=== PATIENT | female | born 1990 | race African-American/Black ===

== ENCOUNTER 2016-08-25 09:28 | Outpatient (CLI) | payer MEDICAID ==
[~2016-08-25 09:28] MED LIST: DEPO150I IM; FIORIC PO; PROC1TAB8 PO
== END 2016-08-25 10:31 | disposition home or self-care (01) ==
LOC: UNDOADMIN 09:28 → HOBG 09:28 → H2EB 09:28 → UNDODISIN 10:31 → HOBG 10:31 → EDSTATUS 12:00
PROVIDERS: ATTEND Obstetrics & Gynecology
DX: O47.1 False labor at or after 37 completed weeks of gestation (principal); Z3A.37 37 weeks gestation of pregnancy

== ENCOUNTER 2016-08-31 07:29 | Inpatient (IN) | payer MEDICAID ==
[~2016-08-31] VITALS: Ht 167.6 cm; Wt 76.0 kg
[2016-08-31] VITALS (23 sets, daily range): BP systolic 113–127; BP diastolic 66–77; PULSE 56–84; RESP 16–20; TEMP 96.6–98; O2SAT 100
[2016-08-31] MEDS ORDERED: PREN29TA PO (08:05)
[2016-08-31 08:39] LABS: AUTOMATED NEUTROPHIL # 7.5 TH/MM3 (1.8-7.7); BASOPHIL % 0.1 % (0.0-2.0); EOSINOPHIL % 0.4 % (0.0-4.0); HEMATOCRIT 36.8 % (35.0-46.0); HEMO FLAGS DIFF FINAL; LYMPH % 22.8 % (9.0-44.0); LYMPHOCYTE # 2.4 TH/MM3 (1.0-4.8); MEAN CELL VOLUME 95.2 FL (80.0-100.0); MEAN CORPUSCULAR HEMOGLOBIN 32.3 PG (27.0-34.0); NEUT % 69.7 % (16.0-70.0); PLATELET COUNT 101 TH/MM3 (150-450); RED BLOOD COUNT 3.87 MIL/MM3 (4.00-5.30); RED CELL DISTRIBUTION WIDTH 15.1 % (11.6-17.2); WHITE BLOOD COUNT 10.7 TH/MM3 (4.0-11.0)
[2016-08-31 08:40] LABS: BLOOD, URINE NEG (NEG); COMMENT (UR) CULT NOT INDICATED; CULTURE IF INDICATED CULT NOT INDICATED; GLUCOSE,URINE NEG (NEG); KETONE, URINE 10 mg/dL (NEG); MUCUS URINE FEW /lpf (OCC); NITRITE,URINE NEG (NEG); PH, URINE 6.5 (5.0-8.5); SQUAMOUS EPITHELIAL CELL URINE 4 /hpf (0-5); URINE COLOR YELLOW (YELLW/STRAW)
[2016-08-31] MEDS ORDERED: LACTATED RINGER'S 1000 ML IV ONE ×2 (09:00→14:45)
[2016-08-31] MEDS ORDERED: CITRIC ACID-SODIUM CITRATE LIQ 30 ML UDC PO SCH ×2 (09:00→14:45)
[2016-08-31] MEDS ORDERED: MEPERIDINE HCL 50 MG/ML VIAL IM ONE ×3 (09:00→19:45)
[2016-08-31] MEDS ORDERED: ceFAZolin 1,000 MG/NS 100 ML IV SCH ×4 (09:00→14:45)
[2016-08-31] MEDS ORDERED: LACTATED RINGER'S 1000 ML IV SCH ×2 (09:00→14:45)
[2016-08-31] MEDS ORDERED: KETOROLAC TROMETHAMINE 30 MG/ML (IVP) VIAL ONE (10:24)
[2016-08-31] MEDS ORDERED: OXYTOCIN 10 UNIT/ML AMP ONE (10:25)
[2016-08-31] MEDS ORDERED: ONDANSETRON HCL 4 MG/2 ML VIAL ONE (10:25)
--- NOTE | 2016-08-31 10:38 | HHI.HP ---
HPI Chief Complaint Repeat Date Seen: Aug 31, 2016 Travel History International Travel<30 Days: No Contact w/Intl Traveler<30Days: No History of Present Illness HPI Patient is a 26 year old at 39-3/7 weeks gestation who presents today for repeat . She had a small amount of bloody mucous discharge this morning and has been feeling contractions every couple minutes. She denies any gush or leaking of fluid. Positive movement. History Past Medical History Medical History: Denies Significant Hx Obstetric History Obstetric History Elective in 2012 Past Surgical History Narrative Surgical 2012 Family History Family History: Negative Social History Alcohol Use: No Tobacco Use: No Substance Abuse: No Allergies-Medications (Allergen,Severity, Reaction): Coded Allergies: No Known Allergies (Verified , 08/31/16) Home Meds Reported Medications Vit-Iron Carbonyl ( Plus Iron 29-1 mg)1 Tab Tab1 Tab PO DAILY #30 TAB Ref 0 08/31/16 Discontinued Reported Medications Medroxyprogesterone Acetate (Depo-Provera Contraceptive)150 Mg/Ml [id number] Mg IM Q90D 11/12/13 Discontinued Scripts Acetamin/Butalbital/Caffeine (Fioricet Tab)1 Tab1 Tab PO Q6H PRN (HEADACHE) #12 TAB Prov:MELBA BEASLEY M.D. 11/12/13 Prochlorperazine Maleate (Compazine 10 Mg Tab)10 Mg Tab10 Mg PO Q6 PRN (NAUSEA OR VOMITING) #12 TAB Prov:MELBA BEASLEY M.D. 11/12/13 Review of Systems Except as stated in HPI: all other systems reviewed are Neg General / Constitutional: No: Fever, Chills Eyes: No: Visual changes HENT: No: Headaches Cardiovascular: No: Chest Pain or Discomfort Respiratory: No: Short of Breath Gastrointestinal: No: Nausea, Vomiting, Abdominal Pain Genitourinary: Pelvic Pain, Discharge, Vaginal Bleeding, No: Dysuria, Hematuria Musculoskeletal: No: Edema Psychiatric: No: Substance Abuse Physical Exam Vital Signs Date Time Temp Pulse Resp B/P Pulse Ox O2 Delivery O2 Flow Rate FiO2 08/31/16 10:11 17 08/31/16 10:10 75 08/31/16 10:05 73 08/31/16 10:00 78 08/31/16 07:45 18 Narrative GENERAL: Well-nourished, well-developed patient. SKIN: Warm and dry. HEAD: Normocephalic and atraumatic. EYES: No scleral icterus. No injection or drainage. ENT: No nasal drainage noted. Mucous membranes pink. Airway patent. NECK: Supple, trachea midline. No JVD. CARDIOVASCULAR: Regular rate and rhythm without murmurs, gallops, or rubs. RESPIRATORY: Breath sounds equal bilaterally. No accessory muscle use. ABDOMEN/GI: Abdomen soft, non-tender, bowel sounds present, no rebound, no guarding Gravid to 39 weeks size GENITOURINARY: External Genitalia: intact and normal in appearance BUS glands: normal Cervix: midposition Dilatation: 2-3 Effacement: 80 Station: -2 Presentation: vertex Membranes: intact Uterine Contractions: q1-3min FHT's: Category: I Baseline: 130 Reactive: + Variability: moderate Decels: none EXTREMITIES: No cyanosis or edema. BACK: Nontender without obvious deformity. NEUROLOGICAL: Awake and alert. Motor and sensory grossly within normal limits. Normal speech. Data Data Vital Signs Reviewed: Yes Orders Complete Blood Count With Diff (08/31/16 08:28) Type And Screen (08/31/16 08:28) Urinalysis - C+S If Indicated (08/31/16 08:28) Specimen To Be Collected PRN (08/31/16 08:28) Meperidine Inj (Demerol Inj) (08/31/16 09:00) Lactated Ringer's 1000 Ml Inj (Lr 1000 M (08/31/16 09:00) Lactated Ringer's 1000 Ml Inj (Lr 1000 M (08/31/16 09:00) Citric Acid-Sodium Citrate Liq (Bicitra (08/31/16 09:00) Cefazolin Inj (Ancef Inj) (08/31/16 09:00) Admit To Inpatient (08/31/16 ) Vital Signs (Adult) .ON ADMISSION (08/31/16 09:23) Activity Oob Ad Michelle (08/31/16 09:23) Heart (08/31/16 09:23) Urinary Catheter Management PRECIOUS.Q8H (08/31/16 09:23) ^ Preps (08/31/16 09:23) Scd / [place] / Foot Pump PRECIOUS.QSHIFT (08/31/16 09:23) ^ Ultrasound For Locatio (08/31/16 09:23) Diet Npo (08/31/16 Breakfast) Ketorolac Inj (Toradol Inj) (08/31/16 10:24) Ondansetron Inj (Zofran Inj) (08/31/16 10:25) Oxytocin Inj (Pitocin Inj) (08/31/16 10:25) Labs Laboratory Tests Test 08/31/16 07:47 White Blood Count 10.7 Red Blood Count 3.87 Hemoglobin 12.5 Hematocrit 36.8 Mean Corpuscular Volume 95.2 Mean Corpuscular Hemoglobin 32.3 Mean Corpuscular Hemoglobin 34.0 Concent Red Cell Distribution Width 15.1 Platelet Count 101 Mean Platelet Volume 11.9 Neutrophils (%) (Auto) 69.7 Lymphocytes (%) (Auto) 22.8 Monocytes (%) (Auto) 7.0 Eosinophils (%) (Auto) 0.4 Basophils (%) (Auto) 0.1 Neutrophils # (Auto) 7.5 Lymphocytes # (Auto) 2.4 Monocytes # (Auto) 0.7 Eosinophils # (Auto) 0.0 Basophils # (Auto) 0.0 CBC Comment DIFF FINAL Differential Comment Urine Color YELLOW Urine Turbidity CLEAR Urine pH 6.5 Urine Specific [place] 1.019 Urine Protein NEG Urine Glucose (UA) NEG Urine Ketones 10 Urine Occult Blood NEG Urine Nitrite NEG Urine Bilirubin NEG Urine Urobilinogen LESS THAN 2.0 Urine Leukocyte Esterase NEG Urine RBC LESS THAN 1 Urine WBC 1 Urine Squamous Epithelial 4 Cells Urine Mucus FEW Microscopic Urinalysis Comment CULT NOT INDICATED Blood Type O POSITIVE Antibody Screen NEGATIVE Assessment/Plan Assessment and Plan 26 year old at 39-3/7 weeks gestation. 1. IUP- Category I tracing, reassuring. 2. Repeat . 3. GBS negative. Saumya Benitez Dr., MD R2 Aug 31, 2016 10:38
--- NOTE | 2016-08-31 10:45 | HHI.HP ---
HPI Chief Complaint CONTRACTIONS, EARLY LABOR Date Seen: Aug 31, 2016 Travel History International Travel<30 Days: No Contact w/Intl Traveler<30Days: No Known Affected Area: No History of Present Illness HPI 26 YEAR OLD BLACK FEMALE THAT PRESENTED TO LABOR AND DELIVERY WITH CONTRACTIONS. SHE WAS SCHEDULED TODAY FOR A REPEAT AT NOON. HER CERVIX WAS 2-3/80/-2 WITH IRREGULAR MILD CONTRACTIONS, DENIES ROM. TRACING REACTIVE. WE WILL GIVE HER SOME DEMEROL AND MOVE HER SURGERY UP TO 11: 00. 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 Medical History: Denies Significant Hx Obstetric History Obstetric History PREVIOUS C SECTION BLOOD TYPE O+ GBS NEGATIVE OB LABS NEGATIVE Past Surgical History Narrative Surgical C SECTION 2012 Family History Family History: Negative Social History Alcohol Use: No Tobacco Use: No Substance Abuse: No Allergies-Medications (Allergen,Severity, Reaction): Coded Allergies: No Known Allergies (Verified , 08/31/16) Home Meds Reported Medications Vit-Iron Carbonyl ( Plus Iron 29-1 mg)1 Tab Tab1 Tab PO DAILY #30 TAB Ref 0 08/31/16 Discontinued Reported Medications Medroxyprogesterone Acetate (Depo-Provera Contraceptive)150 Mg/Ml [id number] Mg IM Q90D 11/12/13 Discontinued Scripts Acetamin/Butalbital/Caffeine (Fioricet Tab)1 Tab1 Tab PO Q6H PRN (HEADACHE) #12 TAB Prov:MELBA BEASLEY M.D. 11/12/13 Prochlorperazine Maleate (Compazine 10 Mg Tab)10 Mg Tab10 Mg PO Q6 PRN (NAUSEA OR VOMITING) #12 TAB Prov:MELBA BEASLEY M.D. 11/12/13 Physical Exam Vital Signs Date Time Temp Pulse Resp B/P Pulse Ox O2 Delivery O2 Flow Rate FiO2 08/31/16 10:11 17 08/31/16 10:10 75 08/31/16 10:05 73 08/31/16 10:00 78 08/31/16 07:45 18 Narrative GENERAL: Well-nourished, well-developed patient. SKIN: Warm and dry. HEAD: Normocephalic and atraumatic. EYES: No scleral icterus. No injection or drainage. ENT: No nasal drainage noted. Mucous membranes pink. Airway patent. NECK: Supple, trachea midline. No JVD. CARDIOVASCULAR: Regular rate and rhythm without murmurs, gallops, or rubs. RESPIRATORY: Breath sounds equal bilaterally. No accessory muscle use. BREASTS: Bilateral exam showed no masses , no retractions, no nipple discharge. ABDOMEN/GI: Abdomen soft, non-tender, bowel sounds present, no rebound, no guarding GENITOURINARY: External Genitalia: intact and normal in appearance SVE 2-3/8-/-2 INTACT FHT's: REACTIVE MOD CONTRACTIONS Q 4-6 MINUTES EXTREMITIES: No cyanosis or edema. BACK: Nontender without obvious deformity. No CVA tenderness. NEUROLOGICAL: Awake and alert. Motor and sensory grossly within normal limits. Five out of 5 muscle strength in all muscle groups. Normal speech. Data Data Vital Signs Reviewed: Yes Orders Complete Blood Count With Diff (08/31/16 08:28) Type And Screen (08/31/16 08:28) Urinalysis - C+S If Indicated (08/31/16 08:28) Specimen To Be Collected PRN (08/31/16 08:28) Meperidine Inj (Demerol Inj) (08/31/16 09:00) Lactated Ringer's 1000 Ml Inj (Lr 1000 M (08/31/16 09:00) Lactated Ringer's 1000 Ml Inj (Lr 1000 M (08/31/16 09:00) Citric Acid-Sodium Citrate Liq (Bicitra (08/31/16 09:00) Cefazolin Inj (Ancef Inj) (08/31/16 09:00) Admit To Inpatient (08/31/16 ) Vital Signs (Adult) .ON ADMISSION (08/31/16 09:23) Activity Oob Ad Michelle (08/31/16 09:23) Heart (08/31/16 09:23) Urinary Catheter Management PRECIOUS.Q8H (08/31/16 09:23) ^ Preps (08/31/16 09:23) Scd / [place] / Foot Pump PRECIOUS.QSHIFT (08/31/16 09:23) ^ Ultrasound For Locatio (08/31/16 09:23) Diet Npo (08/31/16 Breakfast) Ketorolac Inj (Toradol Inj) (08/31/16 10:24) Ondansetron Inj (Zofran Inj) (08/31/16 10:25) Oxytocin Inj (Pitocin Inj) (08/31/16 10:25) Labs Laboratory Tests Test 08/31/16 07:47 White Blood Count 10.7 Red Blood Count 3.87 Hemoglobin 12.5 Hematocrit 36.8 Mean Corpuscular Volume 95.2 Mean Corpuscular Hemoglobin 32.3 Mean Corpuscular Hemoglobin 34.0 Concent Red Cell Distribution Width 15.1 Platelet Count 101 Mean Platelet Volume 11.9 Neutrophils (%) (Auto) 69.7 Lymphocytes (%) (Auto) 22.8 Monocytes (%) (Auto) 7.0 Eosinophils (%) (Auto) 0.4 Basophils (%) (Auto) 0.1 Neutrophils # (Auto) 7.5 Lymphocytes # (Auto) 2.4 Monocytes # (Auto) 0.7 Eosinophils # (Auto) 0.0 Basophils # (Auto) 0.0 CBC Comment DIFF FINAL Differential Comment Urine Color YELLOW Urine Turbidity CLEAR Urine pH 6.5 Urine Specific [place] 1.019 Urine Protein NEG Urine Glucose (UA) NEG Urine Ketones 10 Urine Occult Blood NEG Urine Nitrite NEG Urine Bilirubin NEG Urine Urobilinogen LESS THAN 2.0 Urine Leukocyte Esterase NEG Urine RBC LESS THAN 1 Urine WBC 1 Urine Squamous Epithelial 4 Cells Urine Mucus FEW Microscopic Urinalysis Comment CULT NOT INDICATED Blood Type O POSITIVE Antibody Screen NEGATIVE Assessment/Plan Problem List: (1) Previous section Assessment and Plan WILL MEDICATE WITH DEMEROL AND DO HER REPEAT C SECTION AT 11:00 Discharge Planning DC 2-[address] MENJIVAR EXAMINED PT Deepti Mari Aug 31, 2016 10:45
[2016-08-31] MEDS ORDERED: OXYTOCIN 30 UNITS-500ML PREMIX 500 ML IV ONE ×2 (12:15)
[2016-08-31] MEDS ORDERED: SODIUM CHLORIDE 0.9% FLUSH 10 ML FLUSH IV FLUSH PRN (12:15)
[2016-08-31] MEDS ORDERED: oxyCODONE/ACETAMINOPHEN 5 MG/325 MG TAB PO PRN (12:15)
[2016-08-31] MEDS ORDERED: MORPHINE SULFATE PF 5 MG/10 ML VIAL ONE (12:31)
[2016-08-31] MEDS ORDERED: ONDANSETRON HCL 4 MG/2 ML VIAL IV PUSH PRN (13:00)
[2016-08-31] MEDS ORDERED: OXYTOCIN 30 UNITS-500ML PREMIX 500 ML ONE (13:20)
[2016-08-31] MEDS ORDERED: EPIDURAL-DO NOT ADMINISTER ANTICOAGULANTS PRN (14:45)
[2016-08-31] MEDS ORDERED: EPIDURAL-NALOXONE HCL 0.4 MG/ML AMP IV PRN (14:45)
[2016-08-31] MEDS ORDERED: EPIDURAL-NO SYSTEMIC NARCOTICS PRN (14:45)
[2016-08-31] MEDS ORDERED: EPIDURAL-DIPHENHYDRAMINE HCL 50 MG/ML VIAL IV PUSH PRN (14:45)
[2016-08-31] MEDS: IBUPROFEN 600 MG TAB PO PRN ×2 (16:12→22:21)
[2016-08-31] MEDS ORDERED: LACTATED RINGER'S 1000 ML INJ 1,000 ML IV SCH (17:15)
[2016-08-31] MEDS ORDERED: ZOLPIDEM TARTRATE 5 MG TAB PO PRN (21:00)
[2016-08-31] MEDS ORDERED: SODIUM CHLORIDE 0.9% FLUSH 10 ML FLUSH IV FLUSH SCH (21:00)
[2016-08-31] MEDS ORDERED: OXYTOCIN 30 UNITS-500ML PREMIX 500 ML IV PRN (22:15)
[2016-08-31] MEDS: oxyCODONE/ACETAMINOPHEN 5 MG/325 MG TAB PO PRN (22:22)
[2016-08-31] MEDS: EPIDURAL-DIPHENHYDRAMINE HCL 50 MG CAP PO PRN (22:22)
[2016-09-01 03:30] VITALS: BP 118/72; PULSE 85; RESP 16; TEMP 98
[2016-09-01 05:56] LABS: AUTOMATED NEUTROPHIL # 7.8 TH/MM3 (1.8-7.7); BASOPHIL % 0.5 % (0.0-2.0); EOSINOPHIL # 0.1 TH/MM3 (0-0.4); EOSINOPHIL % 0.5 % (0.0-4.0); HEMATOCRIT 33.7 % (35.0-46.0); LYMPH % 15.7 % (9.0-44.0); LYMPHOCYTE # 1.7 TH/MM3 (1.0-4.8); MEAN CELL VOLUME 95.1 FL (80.0-100.0); MEAN CORPUSCULAR HEMOGLOBIN 32.2 PG (27.0-34.0); MEAN CORPUSCULAR HGB CONC 33.9 % (32.0-36.0); MONO % 9.6 % (0.0-8.0); NEUT % 73.7 % (16.0-70.0); PLATELET COUNT 84 TH/MM3 (150-450); RED BLOOD COUNT 3.55 MIL/MM3 (4.00-5.30); RED CELL DISTRIBUTION WIDTH 14.5 % (11.6-17.2); WHITE BLOOD COUNT 10.6 TH/MM3 (4.0-11.0)
[2016-09-01 06:00] LABS: HEMO FLAGS AUTO DIFF
[2016-09-01] MEDS: IBUPROFEN 600 MG TAB PO PRN ×3 (06:35→22:16)
[2016-09-01] MEDS: oxyCODONE/ACETAMINOPHEN 5 MG/325 MG TAB PO PRN ×4 (06:35→19:14)
[2016-09-01 08:07] LABS: PLATELET ESTIMATE SMEAR LOW (NORMAL); PLATELET MORPHOLOGY ENLARGED (NORMAL); SCAN/DIFF AUTO DIFF CONFIRMED
[2016-09-01 08:45] VITALS: BP 113/73; PULSE 94; RESP 16; TEMP 97.8
--- NOTE | 2016-09-01 09:02 | HHI.OB ---
Subjective Post Operative Day: 1 Objective Vitals/I&O Vital Signs Date Time Temp Pulse Resp B/P Pulse Ox O2 Delivery O2 Flow Rate FiO2 09/01/16 08:45 97.8 94 16 113/73 08/31/16 23:39 98.0 82 16 08/31/16 23:39 113/76 08/31/16 19:30 97.9 65 18 116/77 08/31/16 18:10 18 08/31/16 17:20 18 08/31/16 16:10 17 08/31/16 15:10 16 08/31/16 14:15 97.2 08/31/16 14:15 65 18 120/66 08/31/16 13:38 97.6 08/31/16 13:37 57 18 127/76 100 08/31/16 13:29 64 20 100 08/31/16 13:29 120/70 08/31/16 13:24 96.7 08/31/16 13:07 56 20 115/70 100 08/31/16 12:53 56 20 113/73 100 08/31/16 12:50 100 08/31/16 12:35 96.6 62 19 114/68 08/31/16 10:38 79 116/70 08/31/16 10:35 84 08/31/16 10:30 82 08/31/16 10:11 17 08/31/16 10:10 75 08/31/16 10:05 73 08/31/16 10:00 78 Result Diagram: 09/01/16 0443 Objective Remarks GENERAL: Well-nourished, well-developed patient. CARDIOVASCULAR: Regular rate and rhythm without murmurs, gallops, or rubs. RESPIRATORY: Breath sounds equal bilaterally. No accessory muscle use. ABDOMEN/GI: Abdomen soft, non-tender, bowel sounds present. Incision: steri strips Clean, dry and intact. Fundus: Firm, non-tender at umbilicus. GENITOURINARY: Light to moderate bleeding. EXTREMITIES: No cyanosis or edema, non-tender, without signs of DVT. Medications and IVs Current Medications Medications (Trade) Dose Ordered Sig/Kael Route Start Time Stop Time Status Last Admin (Lr 1000 ml Inj) 1,000 ml @ 100 mls/hr Q10H IV 08/31/16 17:15 09/01/16 13:14 (NS Flush) 2 ml BID IV FLUSH 08/31/16 21:00 (NS Flush) 2 ml UNSCH PRN IV FLUSH 08/31/16 12:15 (Mylicon Chew) 80 mg QID PRN PO 08/31/16 12:15 (Motrin) 600 mg Q6H PRN PO 08/31/16 12:15 09/01/16 06:35 (Percocet 5-325 Mg) 1 tab Q4H PRN PO 08/31/16 12:15 09/01/16 02:30 (Percocet 5-325 Mg) 2 tab Q4H PRN PO 08/31/16 12:15 09/01/16 06:35 (Loraine-Colace) 2 tab Q12HR PRN PO 08/31/16 21:00 (Ambien) 5 mg HS PRN PO 08/31/16 21:00 (M-M-R Ii Inj) 0.5 ml ONCE ONCE SQ 09/01/16 16:00 09/01/16 16:01 (Boostrix Inj) 0.5 ml ONCE ONCE IM 09/01/16 16:00 09/01/16 16:01 (Zofran Inj) 4 mg Q6H PRN IV PUSH 08/31/16 13:00 (Stuartnatal Plus 3 ) 1 tab DAILY PO 09/01/16 09:00 Miscellaneous Information NO SYSTEMIC NARCOTICS TO BE GIVEN FO... UNSCH PRN .XX 08/31/16 14:45 09/01/16 14:44 (Narcan Inj) 0.4 mg UNSCH PRN IV 08/31/16 14:45 09/01/16 14:44 (Benadryl Inj) 25 mg Q6H PRN IV PUSH 08/31/16 14:45 09/01/16 14:44 (Benadryl) 50 mg Q6H PRN PO 08/31/16 14:45 09/01/16 14:44 08/31/16 22:22 Miscellaneous Information ALL NURSING DEPARTMENTS UNSCH PRN .XX 08/31/16 14:45 09/01/16 14:44 (Lr 1000 ml Inj) 1,000 ml @ 150 mls/hr Q6H40M IV 7/24/17 14:45 Assessment/Plan Problem List: (1) Previous section Plan: routine (2) Thrombocytopenia Plan: will repeat lab in am Assessment and Plan pt doing well platelets 84, will repeat in am pain well managed with oral pain medication pt ambulating in room bonding with Discharge Planning DC in 1-2 days Deepti Mari Sep 01, 2016 09:02
[2016-09-01] MEDS: MULTIVIT/MIN/PREN/FOL AC/IRON PRENATAL TAB PO SCH (09:08)
[2016-09-01] MEDS: EPIDURAL-DIPHENHYDRAMINE HCL 50 MG CAP PO PRN (09:08)
[2016-09-01 12:20] VITALS: BP 121/73; PULSE 88; RESP 18; TEMP 97.8
[2016-09-01] MEDS ORDERED: DIPHTH/TETANUS/ACEL PERTUSSIS (BOOSTER) 0.5 ML VIAL/PFS IM ONE (16:00)
[2016-09-01] MEDS ORDERED: MEASLES, MUMPS, RUBELLA VACCINE 0.5 ML VIAL SQ ONE (16:00)
[2016-09-01 22:00] VITALS: BP 106/68; PULSE 89; RESP 16; TEMP 98.5
[2016-09-01] MEDS: SIMETHICONE 80 MG CHEWABLE TAB PO PRN (22:16)
[2016-09-02] MEDS: oxyCODONE/ACETAMINOPHEN 5 MG/325 MG TAB PO PRN ×4 (01:10→20:57)
[2016-09-02 06:58] LABS: HEMATOCRIT 32.3 % (35.0-46.0); MEAN CELL VOLUME 94.8 FL (80.0-100.0); MEAN CORPUSCULAR HEMOGLOBIN 32.1 PG (27.0-34.0); MEAN CORPUSCULAR HGB CONC 33.9 % (32.0-36.0); PLATELET COUNT 99 TH/MM3 (150-450); RED BLOOD COUNT 3.41 MIL/MM3 (4.00-5.30); WHITE BLOOD COUNT 9.1 TH/MM3 (4.0-11.0)
[2016-09-02 07:04] LABS: REVIEW FLAG FINAL
[2016-09-02 08:00] VITALS: BP 97/60; PULSE 85; RESP 16; TEMP 98
[2016-09-02] MEDS: SIMETHICONE 80 MG CHEWABLE TAB PO PRN (08:21)
[2016-09-02] MEDS: MULTIVIT/MIN/PREN/FOL AC/IRON PRENATAL TAB PO SCH (08:58)
[2016-09-02] MEDS: IBUPROFEN 600 MG TAB PO PRN ×3 (08:58→20:57)
--- NOTE | 2016-09-02 09:13 | HHI.OB ---
Subjective Post Operative Day: 2 Objective Vitals/I&O Vital Signs Date Time Temp Pulse Resp B/P Pulse Ox O2 Delivery O2 Flow Rate FiO2 09/01/16 22:00 89 16 106/68 09/01/16 22:00 98.5 09/01/16 12:20 97.8 88 18 121/73 Result Diagram: 09/02/16 0628 Objective Remarks GENERAL: Well-nourished, well-developed patient. CARDIOVASCULAR: Regular rate and rhythm without murmurs, gallops, or rubs. RESPIRATORY: Breath sounds equal bilaterally. No accessory muscle use. ABDOMEN/GI: Abdomen soft, non-tender, bowel sounds present. Incision: steri strips Clean, dry and intact. Fundus: Firm, non-tender at umbilicus. GENITOURINARY: Light to moderate bleeding. EXTREMITIES: No cyanosis or edema, non-tender, without signs of DVT. Medications and IVs Current Medications Medications (Trade) Dose Ordered Sig/Kael Route Start Time Stop Time Status Last Admin (NS Flush) 2 ml BID IV FLUSH 08/31/16 21:00 (NS Flush) 2 ml UNSCH PRN IV FLUSH 08/31/16 12:15 (Mylicon Chew) 80 mg QID PRN PO 08/31/16 12:15 09/02/16 08:21 (Motrin) 600 mg Q6H PRN PO 08/31/16 12:15 09/01/16 22:16 (Percocet 5-325 Mg) 1 tab Q4H PRN PO 08/31/16 12:15 09/01/16 02:30 (Percocet 5-325 Mg) 2 tab Q4H PRN PO 08/31/16 12:15 09/02/16 01:10 (Loraine-Colace) 2 tab Q12HR PRN PO 08/31/16 21:00 (Ambien) 5 mg HS PRN PO 08/31/16 21:00 (Zofran Inj) 4 mg Q6H PRN IV PUSH 08/31/16 13:00 Prenat Multivit/ Chainstitch Seat Joiner/Iron/Folic Ac 1 tab 1 tab DAILY PO 09/01/16 09:00 09/01/16 09:08 (Lr 1000 ml Inj) 1,000 ml @ 150 mls/hr Q6H40M IV 08/31/16 14:45 (Vistaril) 50 mg Q6HR PRN PO 09/02/16 08:45 UNV Assessment/Plan Problem List: (1) Previous section Plan: routine (2) Thrombocytopenia Plan: improving will follow pp Assessment and Plan admitted to nicu due to high bilirubin, pt became very upset with this news, Vistaril ordered , today she said baby is doing better, she is pumping, encouraged to eat, drink and rest today platelets 99 up from 84, we will follow post pain well managed with oral pain medication routine Discharge Planning DC on day 3 Deepti Mari Sep 02, 2016 09:12
[2016-09-02] MEDS: DOCUSATE SODIUM 50 MG/SENNA 8.6 MG TAB PO PRN (11:26)
--- NOTE | 2016-09-02 13:39 | MP ---
cc: Rosa MENJIVAR MD,DOM Guo MD DATE OF SURGERY: 08/31/2016 PREOPERATIVE DIAGNOSIS 1. Previous section, desires repeat. 2. Intrauterine at 39+ weeks. POSTOPERATIVE DIAGNOSIS 1. Previous section, desires repeat. 2. Intrauterine at 39+ weeks. PROCEDURE Repeat low transverse section and removal of previous scar. ANESTHESIA Spinal. SURGEON Rosa Menjivar MD CO-SURGEON Sarai Estrada, R-3 FINDINGS A normal male without Apgars 9 and 9, weight 7 pounds 15 ounces. Normal uterus, normal tubes, normal ovaries. There was a small bleeder on the left side of the bladder which was repaired with a 3-0 chromic on a small needle. COMPLICATIONS None. COUNTS Correct. ESTIMATED BLOOD LOSS 500 cc. FLUIDS Crystalloids. CONDITION The patient tolerated the procedure well and went to the recovery room in good condition. PROCEDURE IN DETAIL The patient was taken to the operating room identified by name band and verbally. She was given a spinal anesthetic. A Shore catheter was inserted. She was prepped and draped for section. The old Pfannenstiel incision was removed and excised completely and the incision was taken down to the fascia. The fascia was taken off the rectus muscle by blunt and sharp dissection. The peritoneum was entered under direct vision without complication. The incision was extended with care to avoid the urinary bladder. A bladder blade was placed and a bladder flap created over the lower uterine segment which was well-developed. The uterus was then scored in a transverse manner along the lower uterine segment and taken down in the midline until the uterine cavity was entered. The incision was extended with the surgeon's fingers. The vertex was grasped and delivered through the incision without difficulty. The hypopharynx and nasopharynx were suctioned. The remainder of the was delivered. The cord was doubly clamped and cut and the infant handed to the resuscitation team that was present. Cord blood was obtained. The placenta was delivered manually without difficulty. The uterus was curetted twice with a wet lap. The uterine incision was repaired with 2-0 Vicryl a running locking fashion, the second layer imbricating the first. The cul-de-sac and gutters were cleaned of blood and debris with a large amount of irrigation. The uterus was delivered back into the abdomen. The incision was again inspected and was hemostatic. The rectus muscles were re-approximated with 0 Vicryl in an interrupted fashion. The fascia was repaired with 0 Vicryl from lateral to midline bilaterally in a running fashion. The subcutaneous tissue was repaired with 3-0 Vicryl. The skin was repaired with 4-0 Monocryl in a subcuticular manner. Steri-Strips were applied. The wound was sterilely dressed. She tolerated the procedure well and went to the recovery room in good condition. R. Judah Menjivar MD RJV/BT /12:15 PM /1:19 PM
[2016-09-02 20:51] VITALS: BP 103/79; PULSE 90; RESP 16; TEMP 97.8
[2016-09-03] MEDS: oxyCODONE/ACETAMINOPHEN 5 MG/325 MG TAB PO PRN ×2 (02:59→10:34)
[2016-09-03] MEDS: IBUPROFEN 600 MG TAB PO PRN ×2 (03:00→10:34)
[2016-09-03 09:00] VITALS: BP 116/82; PULSE 82; RESP 14; TEMP 98.2
[2016-09-03] MEDS: SIMETHICONE 80 MG CHEWABLE TAB PO PRN (10:33)
[2016-09-03] MEDS: MULTIVIT/MIN/PREN/FOL AC/IRON PRENATAL TAB PO SCH (10:33)
[2016-09-03] MEDS: DOCUSATE SODIUM 50 MG/SENNA 8.6 MG TAB PO PRN (10:33)
--- NOTE | 2016-09-03 12:16 | HHI.DCPOC ---
Discharge Care Plan Diagnosis: (1) Previous section (2) Thrombocytopenia Your Health Problems Are: delivery Report Symptoms to Your Doctor -Temperature above 100.5 degrees -Redness, of incision or excessive or foul smelling drainage -Unusual pain or calf pain -Increased vaginal bleeding -Painful or difficulty urinating -Feelings of extreme sadness or anxiety after 2 weeks Goals to Promote Your Health * To prevent worsening of your condition and complications * To maintain your health at the optimal level Directions to Meet Your Goals Take your medications as prescribed Follow your dietary instruction Follow activity as directed Ensure plenty of rest for recovery Drink fluids for hydration Keep your appointments as scheduled Take your immunizations and boosters as scheduled If your symptoms worsen call your PCP, if no PCP go to Urgent Care Center or Emergency Room Smoking is Dangerous to Your Health. Avoid second hand smoke Call the 24-hour crisis hotline for domestic abuse at Deepti Mari Sep 03, 2016 12:16
[2016-09-03] MEDS ORDERED: OXYC1TAB63 PO (12:49)
[2016-09-03] MEDS ORDERED: IBUP-232 PO (12:49)
--- NOTE | 2016-09-03 13:41 | HHI.DS ---
Admission Date Aug 31, 2016 at 07:29 Discharge Date: Sep 03, 2016 Admitting Diagnosis term previous c section Diagnosis: (1) Thrombocytopenia Diagnosis: Secondary (2) S/P repeat low transverse Diagnosis: Principal Delivery Date: Aug 31, 2016 : Repeat Infant: Male Brief History PT CAME TO HOSPITAL IN EARLY LABOR TERM PREVIOUS C SECTION REPEAT C SECTION Hospital Course REPEAT C SECTION ROUTINE CARE Pt Condition on Discharge: Good Discharge Disposition: Discharge Home Discharge Instructions Diet Instructions: As Tolerated, No Restrictions Additional Diet Instructions: Drink at least 8 - 16 oz bottles of water a day Activities You Can Perform: Shower Only-No Bath Activities to Avoid: Prolonged Standing, Strenuous Activity, Sexual Activity Additional Activity Instruc.: No driving until off pain medications Do not lift anything heavier than your baby in an carrier Follow up 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
--- NOTE | 2016-09-03 13:45 | HHI.OB ---
Subjective Post Operative Day: 3 Objective Vitals/I&O Vital Signs Date Time Temp Pulse Resp B/P Pulse Ox O2 Delivery O2 Flow Rate FiO2 09/03/16 09:00 82 14 09/03/16 09:00 98.2 09/03/16 09:00 116/82 09/02/16 20:51 97.8 90 16 103/79 Result Diagram: 09/02/16 0628 Objective Remarks GENERAL: Well-nourished, well-developed patient. CARDIOVASCULAR: Regular rate and rhythm without murmurs, gallops, or rubs. RESPIRATORY: Breath sounds equal bilaterally. No accessory muscle use. ABDOMEN/GI: Abdomen soft, non-tender, bowel sounds present. Incision: steri strips Clean, dry and intact. Fundus: Firm, non-tender at umbilicus. GENITOURINARY: Light to moderate bleeding. EXTREMITIES: No cyanosis or edema, non-tender, without signs of DVT. Medications and IVs Current Medications Medications (Trade) Dose Ordered Sig/Kael Route Start Time Stop Time Status Last Admin (NS Flush) 2 ml BID IV FLUSH 08/31/16 21:00 (NS Flush) 2 ml UNSCH PRN IV FLUSH 08/31/16 12:15 (Mylicon Chew) 80 mg QID PRN PO 08/31/16 12:15 09/03/16 10:33 (Motrin) 600 mg Q6H PRN PO 08/31/16 12:15 09/03/16 10:34 (Percocet 5-325 Mg) 1 tab Q4H PRN PO 08/31/16 12:15 09/01/16 02:30 (Percocet 5-325 Mg) 2 tab Q4H PRN PO 08/31/16 12:15 09/03/16 10:34 (Loraine-Colace) 2 tab Q12HR PRN PO 08/31/16 21:00 09/03/16 10:33 (Ambien) 5 mg HS PRN PO 08/31/16 21:00 09/02/16 22:36 (Zofran Inj) 4 mg Q6H PRN IV PUSH 08/31/16 13:00 Prenat Multivit/ [place]/Iron/Folic Ac 1 tab 1 tab DAILY PO 09/01/16 09:00 09/03/16 10:33 (Lr 1000 ml Inj) 1,000 ml @ 150 mls/hr Q6H40M IV 08/31/16 14:45 (Vistaril) 50 mg Q6HR PRN PO 09/02/16 08:45 Assessment/Plan Problem List: (1) Previous section Plan: routine (2) Thrombocytopenia Plan: improving will follow pp Assessment and Plan POD #3 pt doing well pain well managed with oral pain medication remains in nicu but improving per mom pt ambulating without difficulty pt to be dc to stay close we will follow thrombocytopenia post routine Discharge Planning DC home today, pt will stay in the stay close Deepti Mari Sep 03, 2016 13:45
== END 2016-09-03 15:42 | disposition home or self-care (01) | DRG 765 ==
LOC: H2EB 07:29 → H1EA 11:59
PROVIDERS: ADMIT Obstetrics & Gynecology; ATTEND Obstetrics & Gynecology
PROC: 10D00Z1 Extraction of Products of Conception, Low, Open Approach (ICD-10-PCS; principal; 2016-08-31)
PROC: 0HB7XZZ Excision of Abdomen Skin, External Approach (ICD-10-PCS; 2016-08-31)
DX: O34.211 Maternal care for low transverse scar from previous cesarean delivery (principal); O72.3 Postpartum coagulation defects; D69.6 Thrombocytopenia, unspecified; Z37.0 Single live birth; Z3A.39 39 weeks gestation of pregnancy
CPT/HCPCS: 59025; 81001; 85025; 85027; 86850; 86900; 86901; 90715; J0690; J1885; J2175; J2274; J2405; J2590; J7120; Q0163